=== PATIENT | female | born 1980 | race Caucasian/White ===

== ENCOUNTER 2017-05-31 14:04 | Emergency (ER) | payer OTHER ==
[~2017-05-31] VITALS: Ht 160 cm; Wt 52.2 kg
[~2017-05-31 14:04] MED LIST: BIAXIN500 MG PO; ZYRTEC10 M1 PO
[2017-05-31] MEDS ORDERED: NAPROSYN500 MG PO (16:39)
[2017-05-31 16:41] VITALS: BP 130/68
== END 2017-05-31 16:41 | disposition home or self-care (01) ==
LOC: ED 14:04
DX: M25.511 Pain in right shoulder (principal); F17.200 Nicotine dependence, unspecified, uncomplicated; Z90.49 Acquired absence of other specified parts of digestive tract; Z98.51 Tubal ligation status; Z88.8 Allergy status to other drugs, medicaments and biological substances; W00.0XXA Fall on same level due to ice and snow, initial encounter; Y93.89 Activity, other specified; Y92.89 Other specified places as the place of occurrence of the external cause; Y99.9 Unspecified external cause status

== ENCOUNTER → 2021-02-23 | Outpatient (CLI) | payer OTHER ==
[~2021-02-23] MED LIST changes: +NAPROSYN500 MG PO
== END | disposition home or self-care (01) ==
LOC: COVID19 17:13
PROVIDERS: ATTEND Internal Medicine
DX: U07.1 COVID-19 (principal)

== ENCOUNTER 2021-08-24 16:37 | Emergency (ER) | payer OTHER ==
[~2021-08-24] VITALS: Wt 54.4 kg
[2021-08-24 16:43] VITALS: BP 125/79
[2021-08-24] MEDS ORDERED: CYCLOBENZAPRINE5 M3 PO (19:50)
[2021-08-24] MEDS ORDERED: PREDNISONE20 M1 PO (19:50)
== END 2021-08-24 19:52 | disposition home or self-care (01) ==
LOC: ED 16:37
DX: M54.12 Radiculopathy, cervical region (principal); M25.511 Pain in right shoulder; Z88.8 Allergy status to other drugs, medicaments and biological substances; Z98.51 Tubal ligation status; Z90.49 Acquired absence of other specified parts of digestive tract

== ENCOUNTER 2022-09-01 13:09 | Emergency (ER) | payer OTHER ==
[~2022-09-01] VITALS: Ht 160 cm; Wt 56.7 kg
[~2022-09-01 13:09] MED LIST changes: +CYCLOBENZAPRINE5 M3 PO; +PREDNISONE20 M1 PO
[2022-09-01 13:38] VITALS: BP 121/71
[2022-09-01] MEDS ORDERED: VIBRAMYCIN100 MG PO (14:19)
== END 2022-09-01 14:28 | disposition home or self-care (01) ==
LOC: ED 13:09
DX: A69.20 Lyme disease, unspecified (principal); Z88.8 Allergy status to other drugs, medicaments and biological substances; Z98.51 Tubal ligation status; Z90.49 Acquired absence of other specified parts of digestive tract